=== PATIENT | female | born 2000 | race Hispanic/Latino ===

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

== ENCOUNTER 2022-01-05 21:13 | Inpatient (IN) | payer OTHER, MEDICAID ==
[~2022-01-05] VITALS: Ht 157.5 cm; Wt 61.7 kg
[2022-01-05] MEDS ORDERED: DINOPROSTONE 10 MG VAGINAL SUPP EC SCH (21:30)
[2022-01-05] MEDS ORDERED: LACTATED RINGERS 500 ML 500 ML IV PRN (21:30)
[2022-01-05] MEDS ORDERED: EPHEDRINE SULFATE 50 MG/ML AMPULE IVP PRN (21:30)
[2022-01-05] MEDS ORDERED: PROMETHAZINE HCL 25 MG/ML 1ML AMPULE IM ONE (21:30)
[2022-01-05] MEDS ORDERED: NALOXONE HCL 0.4 MG/1 ML ML IV PRN (21:30)
[2022-01-05] MEDS ORDERED: MEPERIDINE-PF 50 MG/ML SYG IVP ONE (21:30)
[2022-01-05] MEDS ORDERED: LACTATED RINGERS 1000ML 1,000 ML IV PRN (22:30)
[2022-01-05 22:38] LABS: HEMATOCRIT 34.3 % (36-48); MEAN CORPUSCULAR HEMOGLOBIN 30.2 pg (27.0-33.0); MEAN CORPUSCULAR HGB CONC 32.9 g/dL (32.0-36.0); MEAN CORPUSCULAR VOLUME 91.7 fL (80-100); NUCLEATED RED BLOOD CELLS 0.2 % (0.0-0.19); RED BLOOD CELL COUNT(AUTO) 3.74 MIL/uL (4.00-5.50); RED CELL DISTRIBUTION WIDTH 12.9 % (11.0-15.5); WHITE BLOOD COUNT (AUTO) 9.1 K/uL (4.8-10.8)
[2022-01-05 22:45] LABS: APPEARANCE,URINE Clear (CLEAR); BILIRUBIN,URINE Negative (NEGATIVE); COLOR,URINE Yellow (YELLOW); GLUCOSE, URINE (UA) Negative (NEGATIVE); KETONES,URINE Negative (NEGATIVE); LEUKOCYTE ESTERASE ,URINE Negative (NEGATIVE); NITRATE,URINE Negative (NEGATIVE); OCCULT BLOOD,URINE Negative (NEGATIVE); PH,URINE 6.5 (5.0-8.0); PROTEIN,URINE Negative (NEGATIVE)
[2022-01-05 22:53] LABS: AMPHET/METH SCREEN,URINE NEGATIVE (NEGATIVE); BARBITURATE SCREEN, URINE NEGATIVE (NEGATIVE); BENZODIAZEPINES SCREEN,URINE NEGATIVE (NEGATIVE); CANNABINOID SCREEN,URINE NEGATIVE (NEGATIVE); COCAINE SCREEN,URINE NEGATIVE (NEGATIVE); OPIATE SCREEN,URINE NEGATIVE (NEGATIVE); PHENCYCLIDINE SCREEN,URINE NEGATIVE (NEGATIVE)
[2022-01-06] MEDS ORDERED: MEPERIDINE-PF 50 MG/ML SYG ONE ×2 (07:28→11:06)
[2022-01-06] MEDS ORDERED: OXYTOCIN-LR 20 UNITS/1000 ML 1,000 ML IV SCH (10:00)
[2022-01-06] MEDS ORDERED: MEPERIDINE-PF 50 MG/ML SYG IVP PRN (11:00)
[2022-01-06] MEDS ORDERED: PROMETHAZINE HCL 25 MG/ML 1ML AMPULE IM PRN (11:00)
[2022-01-06] MEDS ORDERED: FENTANYL CITRATE PF 50 MCG/1 ML 2ML VIAL ONE (13:38)
[2022-01-06] MEDS ORDERED: EPHEDRINE SULFATE 50 MG/ML AMPULE IVP PRN (15:30)
[2022-01-06] MEDS ORDERED: ROPIVACAINE 0.2% 100ML VIAL 100 ML EP SCH (15:30)
[2022-01-06] MEDS ORDERED: NALOXONE HCL 0.4 MG/1 ML ML IVP PRN ×3 (15:30)
[2022-01-06] MEDS ORDERED: DiphenhydrAMINE HCL 50 MG/ML VIAL IVP PRN (15:30)
[2022-01-06] MEDS ORDERED: ONDANSETRON 4MG INJ IVP PRN (15:30)
[2022-01-06] MEDS ORDERED: LIDOCAINE HCL 1% 20 ML VIAL ONE (19:45)
[2022-01-06] MEDS ORDERED: IBUPROFEN 600 MG TABLET ONE (21:28)
[2022-01-06] MEDS ORDERED: DOCUSATE SODIUM 100 MG CAP PO ONE (21:28)
[2022-01-06] MEDS ORDERED: LANOLIN 30GM OINTMENT TP PRN (21:30)
[2022-01-06] MEDS ORDERED: BENZOCAINE/LANOLIN/ALOE VERA 60 ML AEROSOL TP PRN (21:30)
[2022-01-06] MEDS ORDERED: ACETAMINOPHEN WITH CODEINE 1 TAB TAB PO PRN (21:30)
[2022-01-06] MEDS ORDERED: WITCH HAZEL 1 PAD TP PRN (21:30)
[2022-01-06] MEDS ORDERED: DIPH,PERTUSS(ACELL),TET VAC/PF 0.5 ML VIAL IM PRN (21:30)
[2022-01-06 23:23] VITALS: BP 102/67
[2022-01-07 03:45] VITALS: BP 99/64
[2022-01-07 06:43] LABS: HEMATOCRIT 33.1 % (36-48); MEAN CORPUSCULAR HEMOGLOBIN 30.4 pg (27.0-33.0); MEAN CORPUSCULAR HGB CONC 32.9 g/dL (32.0-36.0); MEAN CORPUSCULAR VOLUME 92.5 fL (80-100); RED BLOOD CELL COUNT(AUTO) 3.58 MIL/uL (4.00-5.50); RED CELL DISTRIBUTION WIDTH 12.9 % (11.0-15.5); WHITE BLOOD COUNT (AUTO) 16.9 K/uL (4.8-10.8)
[2022-01-07] MEDS: IBUPROFEN 600 MG TABLET PO PRN ×2 (06:59→16:55)
[2022-01-07 08:10] VITALS: BP 90/51
[2022-01-07] MEDS: DOCUSATE SODIUM 100 MG CAP PO SCH ×2 (09:43→21:18)
[2022-01-07] MEDS: ACETAMINOPHEN 325 MG TAB PO PRN (09:45)
[2022-01-07 19:12] VITALS: BP 106/69
[2022-01-07 23:02] VITALS: BP 109/73
[2022-01-08] MEDS: ACETAMINOPHEN 325 MG TAB PO PRN (00:30)
[2022-01-08 03:20] VITALS: BP 95/54
[2022-01-08 08:05] VITALS: BP 103/70
[2022-01-08] MEDS: DOCUSATE SODIUM 100 MG CAP PO SCH (09:12)
[2022-01-08] MEDS: IBUPROFEN 600 MG TABLET PO PRN (09:13)
== END 2022-01-08 10:00 | disposition home or self-care (01) | DRG 807 ==
LOC: LDH 21:13 → WSH 01-06 23:20
PROVIDERS: ADMIT Obstetrics & Gynecology; ATTEND Obstetrics & Gynecology
PROC: 10E0XZZ Delivery of Products of Conception, External Approach (ICD-10-PCS; principal; 2022-01-06)
PROC: 3E0S3BZ Introduction of Anesthetic Agent into Epidural Space, Percutaneous Approach (ICD-10-PCS; 2022-01-06)
PROC: 00HU33Z Insertion of Infusion Device into Spinal Canal, Percutaneous Approach (ICD-10-PCS; 2022-01-06)
DX: O13.4 Gestational [pregnancy-induced] hypertension without significant proteinuria, complicating childbirth (principal); Z37.0 Single live birth; O24.92 Unspecified diabetes mellitus in childbirth; Z3A.39 39 weeks gestation of pregnancy; O69.81X0 Labor and delivery complicated by cord around neck, without compression, not applicable or unspecified
CPT/HCPCS: 36415; 80305; 81003; 85027; 86592; 86850; 86900; 86901; 87340; 90715; A4314; G0378; J2175; J2590; J3010; J3490; J7120